=== PATIENT | male | born 1970 | race Caucasian/White ===

== ENCOUNTER 2024-04-09 20:02 | Emergency (ER) | payer BC, SELFPAY ==
--- OUTSIDE RECORDS SUMMARY | 2024-04-09 20:05 | XMS REPORT | Continuity of Care Document ---
Author Name Unknown Address [address] [place] [address] [place] [address] thconnect Address [address] [place] [address]. [address] [place] [address] Care Team Providers Care Director Auto Name Role Phone DEVON SWAN Attending Clinician Unavailable COMFORT OSORIO Attending Clinician Unavailab hilario Mina Attending Clinician Unavailable Blayne Attending Clinician Unavailable ANDRÉS Attending Clinician Unavailable Leopoldo Admitting Clinician Unavailable Blayne Admitting Clinician Unavailable ANDRÉS Admitting Clinician Unavailable Payers Payer Name Policy Type Policy Number Effective Date Expirati on Date Source [employer] - [employer]GIANCE BENEFIT PLAN MANAGEMENT (PPO) [id number] [facility] [employer] PLANS - OPEN ACCESS [id number] 2023 00:00:00 Problems Condition Name Condition Details Condition Category Status Onset Date Resolution Date Last Treatment Date Treating Clinician Comments Source Fatigue Fatigue Problem Active - 00:00: 00 [facility] Pain of bilateral knee joints Pain of Bilateral Knee Joints Problem Active - 00:00: 00 [facility] Gastroesop hageal reflux disease Gastroesop hageal Reflux Disease Problem Active 2022-10 2-11 00:00: 00 [facility] Streptococ wilma sore throat Streptococ wilma Sore Throat Problem Active - 00:00: 00 [facility] Has a sore throat Has a Sore Throat Problem Active - 00:00: 00 [facility] Hypothyroi dism Hypothyroi dism Problem Active 8-11 00:00: 00 [facility] Morbid obesity Morbid Obesity Problem Active 7- 00:00: 00 [facility] Essential hypertensi on Essential Hypertensi on Problem Active 05-04 00:00: 00 [facility] Pain of right shoulder joint Pain of Right Shoulder Joint Problem Active 05-04 00:00: 00 [facility] Muscle spasm of cervical muscle of neck Muscle Spasm of Cervical Muscle of Neck Problem Active 04-27 00:00: 00 [facility] Bursitis of right shoulder Bursitis of Right Shoulder Problem Active 04-27 00:00: 00 [facility] Social History Smoking Status Start Date Stop Date Source Former Smoker [facility] Medications Ordered Medication Name Filled Medication Name Start Date Stop Date Current Medication? Ordering Clinician Indication Dosage Frequency Signature (SIG) Comments Components Source clopidogrel 75 mg tablet TAKE ONE (1) TABLET(S) BY MOUTH ONCE A DAY. clopidogrel 75 mg tablet TAKE ONE (1) TABLET(S) BY MOUTH ONCE A DAY. No clopidogre l 75 mg tablet TAKE ONE (1) TABLET(S) BY MOUTH ONCE A DAY. [facility] GaviLyte-G 236 gram-22.74 gram-6.74 gram-5.86 gram oral solution MIX AND TAKE DIRECTED GaviLyte-G 236 gram-22.74 gram-6.74 gram-5.86 gram oral solution MIX AND TAKE DIRECTED No GaviLyte-G 236 gram-22.74 gram-6.74 gram-5.86 gram oral solution MIX AND TAKE DIRECTED [facility] metoprolol succinate ER 25 mg tablet,exte nded release 24 hr TAKE ONE (1) TABLET(S) BY MOUTH TWICE A DAY. metoprolol succinate ER 25 mg tablet,exte nded release 24 hr TAKE ONE (1) TABLET(S) BY MOUTH TWICE A DAY. No metoprolol succinate ER 25 mg tablet,ext ended release 24 hr TAKE ONE (1) TABLET(S) BY MOUTH TWICE A DAY. [facility] nitroglycer in 0.3 mg sublingual tablet TAKE ONE (1) TABLET SUBLINGUALL Y NEEDED FOR CHEST PAIN. IF NEEDED CAN REPEAT 1 TIME IN 5 MINUTES. nitroglycer in 0.3 mg sublingual tablet TAKE ONE (1) TABLET SUBLINGUALL Y NEEDED FOR CHEST PAIN. IF NEEDED CAN REPEAT 1 TIME IN 5 MINUTES. No nitroglyce rin 0.3 mg sublingual tablet TAKE ONE (1) TABLET SUBLINGUAL LY NEEDED FOR CHEST PAIN. IF NEEDED CAN REPEAT 1 TIME IN 5 MINUTES. [facility] pantoprazol e 40 mg tablet,ángel yed release TAKE ONE (1) TABLET(S) BY MOUTH EVERY DAY. pantoprazol e 40 mg tablet,ángel yed release TAKE ONE (1) TABLET(S) BY MOUTH EVERY DAY. No pantoprazo le 40 mg tablet,del ayed release TAKE ONE (1) TABLET(S) BY MOUTH EVERY DAY. [facility] aspirin 81 mg capsule Take 2 capsules every day by oral route. aspirin 81 mg capsule Take 2 capsules every day by oral route. No 2capsul e(s) Q1D aspirin 81 mg capsule Take 2 capsules every day by oral route. [facility] atorvastati n 80 mg tablet TAKE ONE (1) TABLET(S) BY MOUTH ONCE A DAY. atorvastati n 80 mg tablet TAKE ONE (1) TABLET(S) BY MOUTH ONCE A DAY. No atorvastat in 80 mg tablet TAKE ONE (1) TABLET(S) BY MOUTH ONCE A DAY. [facility] Vital Signs Vital Name Observation Time Observation Value Comments S ource BP Systolic 2024-02-03 00:00:00 93 mm[Hg] [facility] BMI (Body Mass Index) 2024-02-03 00:00:00 36.3 kg/m2 [facility] BP Diastolic 2024-02-03 00:00:00 67 mm[Hg] [facility] Height 2024-02-03 00:00:00 72 [in_i] [facility] Body Weight 2024-02-03 00:00:00 4280 [oz_av] [facility] BP Systolic 2023-07-07 00:00:00 132 mm[Hg] [facility] BP Diastolic 2023-07-07 00:00:00 68 mm[Hg] [facility] BMI (Body Mass Index) 2023-07-07 00:00:00 34.7 kg/m2 [facility] Height 2023-07-07 00:00:00 72 [in_i] [facility] Body Weight 2023-07-07 00:00:00 4096 [oz_av] [facility] BP Diastolic 2023-05-04 00:00:00 89 mm[Hg] [facility] Height 2023-05-04 00:00:00 72 [in_i] [facility] BMI (Body Mass Index) 2023-05-04 00:00:00 36.2 kg/m2 [facility] BP Systolic 2023-05-04 00:00:00 145 mm[Hg] [facility] Body Weight 2023-05-04 00:00:00 4272 [oz_av] [facility] BP Diastolic 2023-04-27 00:00:00 83 mm[Hg] [facility] Height 2023-04-27 00:00:00 72 [in_i] [facility] BMI (Body Mass Index) 2023-04-27 00:00:00 35.4 kg/m2 [facility] BP Systolic 2023-04-27 00:00:00 128 mm[Hg] [facility] Body Weight 2023-04-27 00:00:00 4176 [oz_av] [facility] Procedures Procedure Date / Time Performed Performing Clinicia n Source XR, knee, 3 view 2024-02-03 00:00:00 [facility] XR, shoulder, 2 or more view 2023-05-04 00:00:00 [facility] Knee Arthroscopy/surgery 2002-10-12 00:00:00 [facility] Placement of Stent in Cardiac Conduit [facility] Encounters Start Date/Time End Date/Time Encounter Type Admission Type Attending Clinicians Care Facility Care Department Encounter ID Source 2023-07-06 08:00:00 Inpatient DEVON KING [facility] [id number] [facility] 2023-06-12 11:00:00 Inpatient COMFORT PERALTA [facility] [id number] [facility] 2024-02-03 00:00:00 2024-02-03 00:00:00 Comfort Osorio, REGULATORY AFFAIRS ASSISTANT: [address], [address], [place] [address] , Ph. MMG [facility] [id number] [facility] 2023-12-18 00:00:00 2023-12-18 00:00:00 Outpatient Hawkins_M [facility] [id number] [facility] 2023-11-28 00:00:00 2023-11-28 00:00:00 Outpatient Hawkins_M MMG MMG [id number] [facility] 2023-10-24 00:00:00 2023-10-24 00:00:00 Outpatient Hawkins_M MMG MMG [id number] [facility] 2023-09-10 00:00:00 2023-09-10 00:00:00 Outpatient Hawkins_M MMG MMG [id number] [facility] 2023-08-05 00:00:00 2023-08-05 00:00:00 Outpatient Hawkins_M MMG MMG [id number] [facility] 2023-07-07 00:00:00 2023-07-07 00:00:00 Outpatient Hawkins_M MMG MMG [id number] [facility] 2023-07-07 00:00:00 2023-07-07 00:00:00 Comfort Osorio, REGULATORY AFFAIRS ASSISTANT: [address], [address], [place] [address] , Ph. MMG [facility] [id number] [facility] 2023-07-01 00:00:00 2023-07-01 00:00:00 Outpatient Young_J MMG MMG [id number] [facility] 2023-07-01 00:00:00 2023-07-01 00:00:00 Outpatient Young_J MMG MMG [id number] [facility] 2023-05-04 12:24:00 2023-05-04 12:24:00 Outpatient COMFORT PERALTA [facility] [id number] [facility] 2023-05-04 00:00:00 2023-05-04 00:00:00 [place] [id number] [facility] 2023-05-04 00:00:00 2023-05-04 00:00:00 [place] [id number] [facility] 2023-05-04 00:00:00 2023-05-04 00:00:00 Comfort Landis Terri, REGULATORY AFFAIRS ASSISTANT: [address], [address], [place] [address] , Ph. MMG [facility] [id number] [facility] 2023-04-27 00:00:00 2023-04-27 00:00:00 Outpatient Leopoldo MMG [facility] [id number] [facility] 2023-04-27 00:00:00 2023-04-27 00:00:00 Comfort Landis Osorio, REGULATORY AFFAIRS ASSISTANT: [address], [address], [place] [address] , Ph. MMG [facility] [id number] [facility] 2022-04-25 10:57:00 2022-04-25 10:57:00 Outpatient ISSACELDRE KO [facility] [id number] [facility] Program Results Test Description Test Time Test Comments Results Result Co mments Source [facility] SARS-CoV+SARS-CoV-2 (COVID- 19) Ag panel - Upper respiratory specimen byRapid [id number] 14:49:17 * Test Item Value Reference Range Interpretation Comme nts RAPID SARS COV (test code = RAPID SARS COV) negative RAPID FLU A (test code = RAP ID FLU A) negative RAPID FLU B (test code = RAP ID FLU B) negative [facility]
[2024-04-09] MEDS ORDERED: NA CHLORIDE 0.9% 1,000 ML ONE (20:32)
[2024-04-09 20:45] LABS: Absolute Basophils 0.2 K/uL (0-0.5); Absolute Eosinophils 0.1 K/uL (0-0.5); Absolute Lymphocytes (CBC) 3.4 K/uL (0.7-4.9); Absolute Monocytes 0.6 K/uL (0.1-1.3); Absolute Neutrophil 8.1 K/uL (1.8-8.0); Basophils % 1.5 % (0-1.3); Eosinophils % 0.8 % (0-4.4); Hematocrit 43.8 % (39.6-49.0); Hemoglobin 14.6 g/dL (13.6-17.9); Lymphocytes % 27.3 % (15.3-44.8); MCH 29.3 pg (27.0-35.0); MCHC 33.5 g/dL (32.0-36.0); MCV 87.6 fL (80-100); MPV 7.6 fL (7.6-11.3); Neutrophils % 65.4 % (41.7-73.7); Nucleated Red Blood Cells % 0.2 % (0-0); Platelets 404 thou/uL (152-406); RBC Red Blood Cell Count 4.99 M/uL (4.33-5.43); Red Cell Distribution Width 14.2 % (12.1-15.2)
[2024-04-09 21:01] LABS: Albumin 3.8 g/dL (3.4-5.0); Albumin/Globulin Ratio 0.9 (1.1-1.8); Anion Gap 12.7 mEq/L (5.0-15.0); Bilirubin Direct 0.2 mg/dL (0-0.2); Bilirubin Indirect, Calculated 0.4 mg/dL (0.2-0.8); Bilirubin Total 0.6 mg/dL (0.2-1.0); Globulin 4.1 g/dL (2.3-3.5); Magnesium 1.7 mg/dL (1.6-2.4); Potassium 3.7 mEq/L (3.5-5.1); Protein, Total 7.9 g/dL (6.4-8.2); Troponin High Sensitivity 6.7 pg/mL (<58.9)
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
[2024-04-09 22:22] VITALS: BP 100/70; TEMP 98; O2SAT 98
--- NOTE | 2024-04-11 14:18 | EKG ---
Test Date: 2024-04-09 Test Time: 20:23:06 Tax Agent: LILY MEASUREMENT RESULTS: Intervals: Rate: 87 CO: 152 QRSD: 80 QT: 362 QTc: 435 [place]: P: 39 CO: 152 QRS: -2 T: 47 INTERPRETIVE STATEMENTS: Normal sinus rhythm Normal ECG No previous ECG available for comparison Electronically Signed On 04-11-24 14:14:18 CDT by Cristino Montiel
== END 2024-04-09 22:13 | disposition home or self-care (01) ==
LOC: ER 20:02
DX: T67.5XXA Heat exhaustion, unspecified, initial encounter (principal)
CPT/HCPCS: 85025; 80048; 36415; 83735; 82550; 80076; 84484; J7030; 93005; 96360; 96361; 99284